=== PATIENT | female | born 1980 ===

== ENCOUNTER 2016-10-16 07:50 | Outpatient (RCR) | payer MEDICARE, OTHER ==
[~2016-10-16] VITALS: Ht 165.1 cm; Wt 94.8 kg
[2016-10-16] MEDS ORDERED: Ketorolac 60mg Inj ONE (07:51)
[2016-10-16] MEDS ORDERED: Metoclopramide 10mg/2ml Inj ONE (07:51)
[2016-10-16] MEDS ORDERED: Diazepam 10mg/2ml Inj ONE (07:51)
[2016-10-16] MEDS ORDERED: NS 550ML IV ONE ×2 (07:51)
[2016-10-16] MEDS ORDERED: Succinylcholine 20mg/ml 10ml vial ONE ×2 (07:51)
[2016-10-16] MEDS ORDERED: Ketorolac 30mg Inj ONE (07:51)
[2016-10-16] MEDS ORDERED: Excedrin Migraine tab ONE ×2 (07:51)
[2016-10-16] MEDS ORDERED: Methohexital Sodium Syr 100mg/10ml IVP ONE ×2 (07:51)
[2016-10-16] MEDS ORDERED: Midazolam 2mg/2ml Inj ONE (07:51)
[2016-10-16] MEDS ORDERED: Excedrin Migraine tab ORAL PRN (08:31)
[2016-10-16] MEDS ORDERED: Ketorolac 30mg Inj IV ONE (08:31)
[2016-10-16] MEDS ORDERED: Metoclopramide 10mg/2ml Inj IVP PRN (08:31)
== END 2016-10-20 | disposition home or self-care (01) ==
LOC: ECT 07:50
DX: F33.2 Major depressive disorder, recurrent severe without psychotic features (principal); F84.5 Asperger's syndrome; F50.9 Eating disorder, unspecified; F41.1 Generalized anxiety disorder; Z90.13 Acquired absence of bilateral breasts and nipples
CPT/HCPCS: 90870; J0330; J1885; J2250; J2405; J2765; J3360; J7040

== ENCOUNTER 2016-10-21 08:52 | Outpatient (RCR) | payer MEDICARE, OTHER ==
[~2016-10-21] VITALS: Ht 165.1 cm; Wt 94.8 kg
[2016-10-21] MEDS ORDERED: NS 550ML IV ONE (08:53)
[2016-10-21] MEDS ORDERED: Methohexital Sodium Syr 100mg/10ml IVP ONE (08:53)
[2016-10-21] MEDS ORDERED: Excedrin Migraine tab ONE (08:53)
[2016-10-21] MEDS ORDERED: Midazolam 2mg/2ml Inj ONE (08:53)
[2016-10-21] MEDS ORDERED: Ketorolac 60mg Inj ONE (08:53)
[2016-10-21] MEDS ORDERED: Succinylcholine 20mg/ml 10ml vial ONE (08:53)
[2016-10-21] MEDS ORDERED: Atropine Sulfate 0.4mg/ml inj IVP PRN (10:06)
[2016-10-21] MEDS ORDERED: Excedrin Migraine tab ORAL PRN (10:06)
[2016-10-23] MEDS ORDERED: Succinylcholine 20mg/ml 10ml vial ONE (08:53)
[2016-10-23] MEDS ORDERED: Midazolam 2mg/2ml Inj ONE (08:53)
[2016-10-23] MEDS ORDERED: Ketorolac 60mg Inj ONE (08:53)
[2016-10-23] MEDS ORDERED: NS 550ML IV ONE (08:53)
[2016-10-23] MEDS ORDERED: Methohexital Sodium Syr 100mg/10ml IVP ONE (08:53)
[2016-10-23] MEDS ORDERED: Excedrin Migraine tab ONE (08:53)
[2016-10-26] MEDS ORDERED: Excedrin Migraine tab ORAL PRN (08:04)
[2016-10-26] MEDS ORDERED: NS 550ML IV ONE (12:00)
[2016-10-26] MEDS ORDERED: Midazolam 2mg/2ml Inj ONE (12:00)
[2016-10-26] MEDS ORDERED: Excedrin Migraine tab ONE (12:00)
[2016-10-26] MEDS ORDERED: Methohexital Sodium Syr 100mg/10ml IVP ONE (12:00)
[2016-10-26] MEDS ORDERED: Ketorolac 30mg Inj ONE (12:00)
[2016-10-26] MEDS ORDERED: Succinylcholine 20mg/ml 10ml vial ONE (12:00)
[2016-10-28] MEDS ORDERED: Excedrin Migraine tab ORAL PRN (08:09)
[2016-10-28] MEDS ORDERED: NS 550ML IV ONE ×2 (12:00)
[2016-10-28] MEDS ORDERED: Methohexital Sodium Syr 100mg/10ml IVP ONE ×2 (12:00)
[2016-10-28] MEDS ORDERED: Flumazenil 0.1mg/ml 5ml Inj IV ONE (12:00)
[2016-10-28] MEDS ORDERED: Midazolam 2mg/2ml Inj ONE (12:00)
[2016-10-28] MEDS ORDERED: LORazepam Inj 2mg/ml 1ml ONE (12:00)
[2016-10-28] MEDS ORDERED: Excedrin Migraine tab ONE (12:00)
[2016-10-28] MEDS ORDERED: Succinylcholine 20mg/ml 10ml vial ONE ×2 (12:00)
[2016-10-28] MEDS ORDERED: Ketorolac 30mg Inj ONE (12:00)
[2016-10-28] MEDS ORDERED: Glycopyrrolate 0.2mg/ml 1ml Vial ONE (12:00)
[2016-10-30] MEDS ORDERED: Excedrin Migraine tab ORAL PRN (12:30)
[2016-10-30] MEDS ORDERED: NS 550ML IV ONE (14:53)
[2016-10-30] MEDS ORDERED: Succinylcholine 20mg/ml 10ml vial ONE (14:53)
[2016-10-30] MEDS ORDERED: Methohexital Sodium Syr 100mg/10ml IVP ONE (14:53)
[2016-10-30] MEDS ORDERED: Midazolam 2mg/2ml Inj ONE (14:53)
[2016-10-30] MEDS ORDERED: Ketorolac 30mg Inj ONE (14:53)
[2016-10-30] MEDS ORDERED: Excedrin Migraine tab ONE (14:53)
[2016-11-02] MEDS ORDERED: Ketorolac 60mg Inj ONE (08:00)
[2016-11-02] MEDS ORDERED: Excedrin Migraine tab ONE (08:00)
[2016-11-02] MEDS ORDERED: Succinylcholine 20mg/ml 10ml vial ONE (08:00)
[2016-11-02] MEDS ORDERED: Midazolam 2mg/2ml Inj ONE (08:00)
[2016-11-02] MEDS ORDERED: Methohexital Sodium Syr 100mg/10ml IVP ONE (08:00)
[2016-11-02] MEDS ORDERED: NS 550ML IV ONE (08:00)
[2016-11-02] MEDS ORDERED: Atropine Sulfate 0.4mg/ml inj IVP PRN (19:45)
[2016-11-02] MEDS ORDERED: Excedrin Migraine tab ORAL PRN (19:45)
[2016-11-04] MEDS ORDERED: Methohexital Sodium Syr 100mg/10ml IVP ONE (12:30)
[2016-11-04] MEDS ORDERED: Midazolam 2mg/2ml Inj ONE (12:30)
[2016-11-04] MEDS ORDERED: Succinylcholine 20mg/ml 10ml vial ONE (12:30)
[2016-11-04] MEDS ORDERED: NS 550ML IV ONE (12:30)
[2016-11-04] MEDS ORDERED: Excedrin Migraine tab ONE (12:30)
[2016-11-04] MEDS ORDERED: Ketorolac 30mg Inj ONE (12:30)
[2016-11-04] MEDS ORDERED: Atropine Sulfate 0.4mg/ml inj IVP PRN (17:30)
[2016-11-04] MEDS ORDERED: Excedrin Migraine tab ORAL PRN (17:30)
[2016-11-09] MEDS ORDERED: Ketorolac 60mg Inj ONE (08:53)
[2016-11-09] MEDS ORDERED: Midazolam 2mg/2ml Inj ONE (08:53)
[2016-11-09] MEDS ORDERED: Excedrin Migraine tab ONE (08:53)
[2016-11-09] MEDS ORDERED: NS 550ML IV ONE (08:53)
[2016-11-09] MEDS ORDERED: Methohexital Sodium Syr 100mg/10ml IVP ONE (08:53)
[2016-11-09] MEDS ORDERED: Succinylcholine 20mg/ml 10ml vial ONE (08:53)
[2016-11-09] MEDS ORDERED: Excedrin Migraine tab ORAL PRN (10:48)
[2016-11-11] MEDS ORDERED: Ketorolac 60mg Inj ONE (08:53)
[2016-11-11] MEDS ORDERED: Methohexital Sodium Syr 100mg/10ml IVP ONE (08:53)
[2016-11-11] MEDS ORDERED: Succinylcholine 20mg/ml 10ml vial ONE (08:53)
[2016-11-11] MEDS ORDERED: Midazolam 2mg/2ml Inj ONE (08:53)
[2016-11-11] MEDS ORDERED: NS 550ML IV ONE (08:53)
[2016-11-11] MEDS ORDERED: Excedrin Migraine tab ONE (08:53)
[2016-11-11] MEDS ORDERED: Excedrin Migraine tab ORAL PRN (16:15)
[2016-11-13] MEDS ORDERED: Excedrin Migraine tab ONE (22:35)
[2016-11-13] MEDS ORDERED: NS 550ML IV ONE (22:35)
[2016-11-13] MEDS ORDERED: Midazolam 2mg/2ml Inj ONE (22:35)
[2016-11-13] MEDS ORDERED: Methohexital Sodium Syr 100mg/10ml IVP ONE (22:35)
[2016-11-13] MEDS ORDERED: Ketorolac 30mg Inj ONE (22:35)
[2016-11-13] MEDS ORDERED: Succinylcholine 20mg/ml 10ml vial ONE (22:35)
[2016-11-13] MEDS ORDERED: Excedrin Migraine tab ORAL PRN (22:45)
[2016-11-16] MEDS ORDERED: Excedrin Migraine tab ORAL ONE (06:00)
[2016-11-16] MEDS ORDERED: Methohexital Sodium Syr 100mg/10ml IVP ONE (12:00)
[2016-11-16] MEDS ORDERED: Midazolam 2mg/2ml Inj ONE (12:00)
[2016-11-16] MEDS ORDERED: NS 550ML IV ONE (12:00)
[2016-11-16] MEDS ORDERED: Excedrin Migraine tab ONE (12:00)
[2016-11-16] MEDS ORDERED: Succinylcholine 20mg/ml 10ml vial ONE (12:00)
[2016-11-16] MEDS ORDERED: Ketorolac 30mg Inj ONE (12:00)
== END 2016-11-17 | disposition home or self-care (01) ==
LOC: ECT 08:52
DX: F33.2 Major depressive disorder, recurrent severe without psychotic features (principal)
CPT/HCPCS: 90870; J0330; J1885; J2250; J2405; J7040

== ENCOUNTER 2016-11-20 06:59 | Outpatient (RCR) | payer MEDICARE, OTHER ==
[~2016-11-20] VITALS: Ht 165.1 cm; Wt 94.8 kg
[2016-11-20] MEDS ORDERED: Succinylcholine 20mg/ml 10ml vial ONE (07:00)
[2016-11-20] MEDS ORDERED: Excedrin Migraine tab ONE (07:00)
[2016-11-20] MEDS ORDERED: Methohexital Sodium Syr 100mg/10ml IVP ONE (07:00)
[2016-11-20] MEDS ORDERED: Midazolam 2mg/2ml Inj ONE (07:00)
[2016-11-20] MEDS ORDERED: NS 550ML IV ONE (07:00)
[2016-11-20] MEDS ORDERED: Ketorolac 60mg Inj ONE (07:00)
[2016-11-20] MEDS ORDERED: Excedrin Migraine tab ORAL PRN (08:59)
[2016-11-25] MEDS ORDERED: Excedrin Migraine tab ONE (07:00)
[2016-11-25] MEDS ORDERED: Methohexital Sodium Syr 100mg/10ml IVP ONE (07:00)
[2016-11-25] MEDS ORDERED: NS 550ML IV ONE (07:00)
[2016-11-25] MEDS ORDERED: Dexamethasone 4mg/ml vial ONE (07:00)
[2016-11-25] MEDS ORDERED: Ketorolac 60mg Inj ONE (07:00)
[2016-11-25] MEDS ORDERED: Succinylcholine 20mg/ml 10ml vial ONE (07:00)
[2016-11-25] MEDS ORDERED: Midazolam 2mg/2ml Inj ONE (07:00)
[2016-11-25] MEDS ORDERED: Excedrin Migraine tab ORAL PRN (17:30)
[2016-11-25] MEDS ORDERED: Atropine Sulfate 0.4mg/ml inj IVP PRN (17:30)
[2016-12-07] MEDS ORDERED: Ketorolac 60mg Inj ONE (07:00)
[2016-12-07] MEDS ORDERED: Midazolam 2mg/2ml Inj ONE (07:00)
[2016-12-07] MEDS ORDERED: NS 550ML IV ONE (07:00)
[2016-12-07] MEDS ORDERED: Methohexital Sodium Syr 100mg/10ml IVP ONE (07:00)
[2016-12-07] MEDS ORDERED: Succinylcholine 20mg/ml 10ml vial ONE (07:00)
[2016-12-07] MEDS ORDERED: Dexamethasone 4mg/ml vial ONE (07:00)
[2016-12-07] MEDS ORDERED: Excedrin Migraine tab ONE (07:00)
[2016-12-07] MEDS ORDERED: Excedrin Migraine tab ORAL PRN (08:03)
[2016-12-07] MEDS ORDERED: Atropine Sulfate 0.4mg/ml inj IVP PRN (08:03)
[2016-12-18] MEDS ORDERED: Excedrin Migraine tab ORAL PRN (08:33)
[2016-12-18] MEDS ORDERED: Dexamethasone 4mg/ml vial ONE (09:00)
[2016-12-18] MEDS ORDERED: Succinylcholine 20mg/ml 10ml vial ONE (09:00)
[2016-12-18] MEDS ORDERED: Ketorolac 60mg Inj ONE (09:00)
[2016-12-18] MEDS ORDERED: NS 550ML IV ONE (09:00)
[2016-12-18] MEDS ORDERED: Methohexital Sodium Syr 100mg/10ml IVP ONE (09:00)
[2016-12-18] MEDS ORDERED: Midazolam 2mg/2ml Inj ONE (09:00)
[2016-12-18] MEDS ORDERED: Excedrin tab (non formulary) ONE (09:00)
== END 2016-12-18 | disposition home or self-care (01) ==
LOC: ECT 06:59
DX: F33.2 Major depressive disorder, recurrent severe without psychotic features (principal)
CPT/HCPCS: 90870; J0330; J1100; J2250; J2405; J7040

== ENCOUNTER 2017-01-06 04:49 | Outpatient (RCR) | payer MEDICARE, OTHER ==
[~2017-01-06] VITALS: Ht 165.1 cm; Wt 94.8 kg
[2017-01-06] MEDS ORDERED: Excedrin Migraine tab ONE (04:50)
[2017-01-06] MEDS ORDERED: Ketorolac 60mg Inj ONE (04:50)
[2017-01-06] MEDS ORDERED: Succinylcholine 20mg/ml 10ml vial ONE (04:50)
[2017-01-06] MEDS ORDERED: Dexamethasone 4mg/ml vial ONE (04:50)
[2017-01-06] MEDS ORDERED: Methohexital Sodium Syr 100mg/10ml IVP ONE (04:50)
[2017-01-06] MEDS ORDERED: NS 550ML IV ONE (04:50)
[2017-01-06] MEDS ORDERED: Midazolam 2mg/2ml Inj ONE (04:50)
[2017-01-06] MEDS ORDERED: Excedrin Migraine tab ORAL PRN (09:49)
== END 2017-01-17 | disposition home or self-care (01) ==
LOC: ECT 04:49
DX: F33.2 Major depressive disorder, recurrent severe without psychotic features (principal)
CPT/HCPCS: 90870; J0330; J1100; J2250; J2405; J7040

== ENCOUNTER 2017-01-25 07:49 | Outpatient (RCR) | payer MEDICARE, OTHER ==
[~2017-01-25] VITALS: Ht 165.1 cm; Wt 94.8 kg
[2017-01-25] MEDS ORDERED: Succinylcholine 20mg/ml 10ml vial ONE (07:50)
[2017-01-25] MEDS ORDERED: Excedrin Migraine tab ONE (07:50)
[2017-01-25] MEDS ORDERED: Dexamethasone 4mg/ml vial ONE (07:50)
[2017-01-25] MEDS ORDERED: Ketorolac 60mg Inj ONE (07:50)
[2017-01-25] MEDS ORDERED: Midazolam 2mg/2ml Inj ONE (07:50)
[2017-01-25] MEDS ORDERED: NS 550ML IV ONE (07:50)
[2017-01-25] MEDS ORDERED: Methohexital Sodium Syr 100mg/10ml IVP ONE (07:50)
[2017-01-25] MEDS ORDERED: Excedrin Migraine tab ORAL PRN (15:30)
== END 2017-02-17 | disposition home or self-care (01) ==
LOC: ECT 07:49
DX: F33.2 Major depressive disorder, recurrent severe without psychotic features (principal)
CPT/HCPCS: 90870; J0330; J1100; J2250; J2405; J7040

== ENCOUNTER 2017-02-19 05:03 | Outpatient (RCR) | payer MEDICARE, OTHER ==
[~2017-02-19] VITALS: Ht 165.1 cm; Wt 94.8 kg
[2017-02-19] MEDS ORDERED: Methohexital Sodium Syr 100mg/10ml IVP ONE (05:04)
[2017-02-19] MEDS ORDERED: NS 550ML IV ONE (05:04)
[2017-02-19] MEDS ORDERED: Ketorolac 30mg Inj ONE (05:04)
[2017-02-19] MEDS ORDERED: Excedrin Migraine tab ONE (05:04)
[2017-02-19] MEDS ORDERED: Dexamethasone 4mg/ml vial ONE (05:04)
[2017-02-19] MEDS ORDERED: Midazolam 2mg/2ml Inj ONE (05:04)
[2017-02-19] MEDS ORDERED: Succinylcholine 20mg/ml 10ml vial ONE (05:04)
[2017-02-19] MEDS ORDERED: Lidocaine 2% 100mg/5ml Carp IV PRN (08:30)
[2017-02-19] MEDS ORDERED: Atropine Sulfate 0.4mg/ml inj IVP PRN (13:00)
[2017-03-12] MEDS ORDERED: Midazolam 2mg/2ml Inj ONE (08:00)
[2017-03-12] MEDS ORDERED: Excedrin Migraine tab ONE (08:00)
[2017-03-12] MEDS ORDERED: Methohexital Sodium Syr 100mg/10ml IVP ONE (08:00)
[2017-03-12] MEDS ORDERED: Dexamethasone 4mg/ml vial ONE (08:00)
[2017-03-12] MEDS ORDERED: Ketorolac 60mg Inj ONE (08:00)
[2017-03-12] MEDS ORDERED: Succinylcholine 20mg/ml 10ml vial ONE (08:00)
[2017-03-12] MEDS ORDERED: NS 550ML IV ONE (08:00)
[2017-03-12] MEDS ORDERED: Excedrin Migraine tab ORAL PRN (09:11)
== END 2017-03-19 | disposition home or self-care (01) ==
LOC: ECT 05:03
DX: F33.2 Major depressive disorder, recurrent severe without psychotic features (principal)
CPT/HCPCS: 90870; J0330; J1100; J1885; J2250; J2405; J7040

== ENCOUNTER 2017-04-05 06:45 | Outpatient (RCR) | payer MEDICARE, OTHER ==
[~2017-04-05] VITALS: Ht 165.1 cm; Wt 94.8 kg
[2017-04-05] MEDS ORDERED: Succinylcholine 20mg/ml 10ml vial ONE (06:46)
[2017-04-05] MEDS ORDERED: NS 550ML IV ONE (06:46)
[2017-04-05] MEDS ORDERED: Excedrin Migraine tab ONE (06:46)
[2017-04-05] MEDS ORDERED: Methohexital Sodium Syr 100mg/10ml IVP ONE (06:46)
[2017-04-05] MEDS ORDERED: Dexamethasone 4mg/ml vial ONE (06:46)
[2017-04-05] MEDS ORDERED: Midazolam 2mg/2ml Inj ONE (06:46)
[2017-04-05] MEDS ORDERED: Ketorolac 60mg Inj ONE (06:46)
[2017-04-05] MEDS ORDERED: Excedrin Migraine tab ORAL PRN (08:07)
== END 2017-04-19 | disposition home or self-care (01) ==
LOC: ECT 06:45
DX: F33.2 Major depressive disorder, recurrent severe without psychotic features (principal)
CPT/HCPCS: 90870; J0330; J1100; J2250; J2405; J7040

== ENCOUNTER 2017-05-03 06:32 | Outpatient (RCR) | payer MEDICARE, OTHER ==
[~2017-05-03] VITALS: Ht 165.1 cm; Wt 94.8 kg
[2017-05-03] MEDS ORDERED: Excedrin Migraine tab ONE (07:00)
[2017-05-03] MEDS ORDERED: Midazolam 2mg/2ml Inj ONE (07:00)
[2017-05-03] MEDS ORDERED: Succinylcholine 20mg/ml 10ml vial ONE (07:00)
[2017-05-03] MEDS ORDERED: Ketorolac 60mg Inj ONE (07:00)
[2017-05-03] MEDS ORDERED: NS 550ML IV ONE (07:00)
[2017-05-03] MEDS ORDERED: Dexamethasone 4mg/ml vial ONE (07:00)
[2017-05-03] MEDS ORDERED: Methohexital Sodium Syr 100mg/10ml IVP ONE (07:00)
[2017-05-03] MEDS ORDERED: Atropine Sulfate 0.4mg/ml inj IVP PRN (08:37)
[2017-05-03] MEDS ORDERED: Excedrin Migraine tab ORAL PRN (08:37)
== END 2017-05-20 | disposition home or self-care (01) ==
LOC: ECT 06:32
DX: F33.2 Major depressive disorder, recurrent severe without psychotic features (principal)
CPT/HCPCS: 90870; J0330; J1100; J2250; J2405; J7040

== ENCOUNTER 2017-05-31 10:21 | Outpatient (RCR) | payer MEDICARE, OTHER ==
[~2017-05-31] VITALS: Ht 165.1 cm; Wt 94.8 kg
[2017-06-07] MEDS ORDERED: Dexamethasone 4mg/ml vial ONE (08:00)
[2017-06-07] MEDS ORDERED: Methohexital Sodium Syr 100mg/10ml IVP ONE (08:00)
[2017-06-07] MEDS ORDERED: Ketorolac 60mg Inj ONE (08:00)
[2017-06-07] MEDS ORDERED: NS 500ML IV ONE (08:00)
[2017-06-07] MEDS ORDERED: Succinylcholine 20mg/ml 10ml vial ONE (08:00)
[2017-06-07] MEDS ORDERED: Excedrin Migraine tab ONE (08:00)
[2017-06-07] MEDS ORDERED: Midazolam 2mg/2ml Inj ONE (08:00)
[2017-06-07] MEDS ORDERED: Sodium Chloride 500ML 500 ML IV ONE (09:09)
[2017-06-07] MEDS ORDERED: Excedrin Migraine tab ORAL PRN (09:09)
== END 2017-06-19 | disposition home or self-care (01) ==
LOC: ECT 10:21
DX: F33.2 Major depressive disorder, recurrent severe without psychotic features (principal)
CPT/HCPCS: 90870; J0330; J1100; J2250; J2405; J7040

== ENCOUNTER 2017-07-07 06:31 | Outpatient (RCR) | payer MEDICARE, OTHER ==
[~2017-07-07] VITALS: Ht 165.1 cm; Wt 94.8 kg
[2017-07-07] MEDS ORDERED: Excedrin Migraine tab ONE (06:32)
[2017-07-07] MEDS ORDERED: Ketorolac 60mg Inj ONE (06:32)
[2017-07-07] MEDS ORDERED: NS 500ML IV ONE (06:32)
[2017-07-07] MEDS ORDERED: Succinylcholine 20mg/ml 10ml vial ONE (06:32)
[2017-07-07] MEDS ORDERED: Methohexital Sodium Syr 100mg/10ml IVP ONE (06:32)
[2017-07-07] MEDS ORDERED: Dexamethasone 4mg/ml vial ONE (06:32)
[2017-07-07 08:56] VITALS: BP 98/59
[2017-07-07 09:12] VITALS: BP 123/49
[2017-07-07] MEDS ORDERED: Sodium Chloride 500ML 500 ML IV ONE (09:12)
[2017-07-07] MEDS ORDERED: Excedrin Migraine tab ORAL PRN (09:12)
[2017-07-07 09:17] VITALS: BP 117/59
[2017-07-07 09:22] VITALS: BP 109/55
[2017-07-07 09:27] VITALS: BP 116/50
== END 2017-07-20 | disposition home or self-care (01) ==
LOC: ECT 06:31
DX: F33.2 Major depressive disorder, recurrent severe without psychotic features (principal)
CPT/HCPCS: 90870; J0330; J1100; J2405; J3360; J7040

== ENCOUNTER 2017-08-02 07:24 | Outpatient (RCR) | payer MEDICARE, MEDICAID, OTHER ==
[~2017-08-02] VITALS: Ht 165.1 cm; Wt 94.8 kg
[2017-08-02] MEDS ORDERED: Midazolam 2mg/2ml Inj ONE (07:25)
[2017-08-02] MEDS ORDERED: Dexamethasone 4mg/ml vial ONE (07:25)
[2017-08-02] MEDS ORDERED: Ketorolac 60mg Inj ONE (07:25)
[2017-08-02] MEDS ORDERED: NS 500ML ONE (07:25)
[2017-08-02] MEDS ORDERED: Succinylcholine 20mg/ml 10ml vial ONE (07:25)
[2017-08-02] MEDS ORDERED: Methohexital Sodium Syr 100mg/10ml IVP ONE (07:25)
[2017-08-02] MEDS ORDERED: Excedrin Migraine tab ONE (07:25)
[2017-08-11 09:29] VITALS: BP 110/63
[2017-08-11] MEDS ORDERED: Excedrin Migraine tab ORAL PRN (09:52)
[2017-08-11] MEDS ORDERED: Sodium Chloride 500ML 500 ML IV ONE (09:52)
[2017-08-11 09:55] VITALS: BP 130/59
[2017-08-11 10:00] VITALS: BP 129/76
[2017-08-11 10:05] VITALS: BP 129/73
[2017-08-11 10:10] VITALS: BP 124/52
== END 2017-08-19 | disposition home or self-care (01) ==
LOC: ECT 07:24
DX: F33.2 Major depressive disorder, recurrent severe without psychotic features (principal)
CPT/HCPCS: 90870; J0330; J1100; J2250; J2405; J7040

== ENCOUNTER 2017-09-15 05:39 | Outpatient (RCR) | payer MEDICARE, OTHER | END 2017-09-19 | disposition home or self-care (01) | LOC: ECT 05:39 | DX: F33.2 Major depressive disorder, recurrent severe without psychotic features (principal) ==